=== PATIENT | female | born 1965 | race Caucasian/White ===

== ENCOUNTER 2016-11-18 02:38 | Inpatient (IN) | payer BC ==
[~2016-11-18] VITALS: Ht 170.2 cm; Wt 83.0 kg
[2016-11-18 05:09] LABS: HEMOGLOBIN 11.8 gm/dl (12.3-15.3); RED BLOOD COUNT 3.54 M/UL (4.00-5.10); WHITE BLOOD COUNT 7.5 K/UL (4.5-11.0)
[2016-11-18] MEDS ORDERED: LISINOPRIL5 MG PO (05:16)
[2016-11-18] MEDS ORDERED: CATAPRES TTS P TD (05:16)
[2016-11-18] MEDS ORDERED: HABITROL 21 MG P1 EA TD (05:17)
[2016-11-18] MEDS ORDERED: DILANTIN 100 M100 MG PO (05:17)
[2016-11-18 05:26] LABS: BUN/CREATININE RATIO 35 (0-10)
[2016-11-19 03:52] LABS: HEMOGLOBIN 13.2 gm/dl (12.3-15.3)
[2016-11-19 03:58] LABS: RED BLOOD COUNT 3.92 M/UL (4.00-5.10); WHITE BLOOD COUNT 9.7 K/UL (4.5-11.0)
[2016-11-19 04:10] LABS: BUN/CREATININE RATIO 38 (0-10)
== END 2016-11-19 10:41 | disposition left against medical advice (07) | DRG 208 ==
LOC: CCU 04:12
PROVIDERS: Hospitalist; ADMIT Internal Medicine
PROC: 5A1935Z Respiratory Ventilation, Less than 24 Consecutive Hours (ICD-10-PCS; principal; 2016-11-18)
DX: J96.01 Acute respiratory failure with hypoxia (principal); G93.40 Encephalopathy, unspecified; B18.1 Chronic viral hepatitis B without delta-agent; G40.909 Epilepsy, unspecified, not intractable, without status epilepticus; F19.10 Other psychoactive substance abuse, uncomplicated; F17.210 Nicotine dependence, cigarettes, uncomplicated; Z79.899 Other long term (current) drug therapy; I10 Essential (primary) hypertension
CPT/HCPCS: 36415; 36600; 71010; 76705; 80053; 80074; 80185; 80307; 81001; 82140; 82550; 82553; 82803; 83605; 83735; 84100; 84484; 85027; 87040; 87086; 87390; 93005; 94002; A4628; J0696; J1165; J1335; J1630; J3486; J7050

== ENCOUNTER 2016-11-29 01:19 | Emergency (ER) | payer BC ==
[~2016-11-29 01:19] MED LIST: CATAPRES TTS P TD; DILANTIN 100 M100 MG PO; HABITROL 21 MG P1 EA TD; LISINOPRIL5 MG PO
[2016-11-29 03:01] LABS: BUN/CREATININE RATIO 33 (0-10)
[2016-11-29 03:14] LABS: HEMOGLOBIN 12.7 gm/dl (12.3-15.3); RED BLOOD COUNT 3.74 M/UL (4.00-5.10); WHITE BLOOD COUNT 16.3 K/UL (4.5-11.0)
== END 2016-11-29 08:58 | disposition short-term general hospital (02) ==
LOC: ER1 01:19
PROVIDERS: Physician Assistant
DX: K65.0 Generalized (acute) peritonitis (principal); R06.02 Shortness of breath; R07.89 Other chest pain; I10 Essential (primary) hypertension; B19.10 Unspecified viral hepatitis B without hepatic coma; F17.200 Nicotine dependence, unspecified, uncomplicated
CPT/HCPCS: 71010; 80053; 81001; 82140; 83605; 83690; 84484; 85025; 85610; 85730; 87040; 87086; 93005; 96365; 96367; 96375; 96376; 99285; J0696; J2270; J2405; J2543; J3370; J7030; J7050

== ENCOUNTER 2020-12-07 13:37 | Emergency (ER) | payer BC, OTHER ==
[~2020-12-07 13:37] MED LIST changes: +BENTYL 20MG TAB20 MG PO; +ZOFRAN ODT 4 MG4 MG PO
[2020-12-07] MEDS ORDERED: IBU800 MG PO (17:28)
[2020-12-07] MEDS ORDERED: NORFLEX 100 MG100 MG PO (17:28)
[2020-12-19] MEDS ORDERED: KEPPRA750 MG PO (06:59)
[2020-12-19] MEDS ORDERED: [UNRECOGNIZED DRUG - OTHER] PO (07:01)
[2020-12-19] MEDS ORDERED: SPIRONOLACTONE100 MG PO (07:02)
[2020-12-19] MEDS ORDERED: LASIX20 MG PO (07:03)
[2020-12-19] MEDS ORDERED: SPIRIVA18 MCG INH (07:03)
[2020-12-19] MEDS ORDERED: NEURONTIN600 MG PO (07:05)
[2020-12-19] MEDS ORDERED: HYDROCODON-ACE1 EAC4 PO (08:20)
[2020-12-19] MEDS ORDERED: TORADOL 10 MG T10 MG PO (08:20)
== END 2020-12-07 17:58 | disposition home or self-care (01) ==
LOC: ER1 13:37
DX: S63.287A Dislocation of proximal interphalangeal joint of left little finger, initial encounter (principal); S60.211A Contusion of right wrist, initial encounter; S20.211A Contusion of right front wall of thorax, initial encounter; J44.9 Chronic obstructive pulmonary disease, unspecified; G40.909 Epilepsy, unspecified, not intractable, without status epilepticus; F17.210 Nicotine dependence, cigarettes, uncomplicated; Z79.899 Other long term (current) drug therapy; W20.8XXA Other cause of strike by thrown, projected or falling object, initial encounter; Y92.009 Unspecified place in unspecified non-institutional (private) residence as the place of occurrence of the external cause
CPT/HCPCS: 71046; 71111; 71120; 73110; 73140; 96372; 99283; J1885

== ENCOUNTER → 2020-12-19 | Day surgery (SDC) | payer BC, OTHER ==
[~2020-12-19] VITALS: Ht 170.2 cm; Wt 88.0 kg
[~2020-12-19] MED LIST changes: +HYDROCODON-ACE1 EAC4 PO; +IBU800 MG PO; +KEPPRA750 MG PO; +LASIX20 MG PO; +NEURONTIN600 MG PO; +NORFLEX 100 MG100 MG PO; +SPIRIVA18 MCG INH; +SPIRONOLACTONE100 MG PO; +TORADOL 10 MG T10 MG PO; +[UNRECOGNIZED DRUG - OTHER] PO
[2020-12-19 06:55] LABS: HEMOGLOBIN 16.3 gm/dl (12.3-15.3); RED BLOOD COUNT 4.99 M/UL (4.00-5.10); WHITE BLOOD COUNT 5.9 K/UL (4.5-11.0)
[2020-12-19 07:09] LABS: BUN/CREATININE RATIO 13 (0-10)
== END | disposition home or self-care (01) ==
LOC: OR 05:37
PROVIDERS: Orthopaedic Surgery
DX: S63.287A Dislocation of proximal interphalangeal joint of left little finger, initial encounter (principal); K21.9 Gastro-esophageal reflux disease without esophagitis; F17.210 Nicotine dependence, cigarettes, uncomplicated; Z85.41 Personal history of malignant neoplasm of cervix uteri; X50.9XXA Other and unspecified overexertion or strenuous movements or postures, initial encounter
CPT/HCPCS: 36415; 71045; 73130; 76000; 80048; 85025; 93005; J0690; J1100; J1885; J2250; J2405; J2704; J3010; J7120

== ENCOUNTER 2021-03-10 23:40 | Emergency (ER) | payer BC ==
[~2021-03-10] VITALS: Ht 170.2 cm; Wt 86.2 kg
[2021-03-11 01:57] LABS: HEMOGLOBIN 15.4 gm/dl (12.3-15.3); RED BLOOD COUNT 4.92 M/UL (4.00-5.10); WHITE BLOOD COUNT 8.1 K/UL (4.5-11.0)
[2021-03-11 02:18] LABS: BUN/CREATININE RATIO 19 (0-10)
[2021-03-11] MEDS ORDERED: BUSPIRONE HCL30 MG PO (07:05)
[2021-03-11] MEDS ORDERED: XIFAXAN550 MG PO (07:08)
== END 2021-03-11 09:35 | disposition home or self-care (01) ==
LOC: ER1 23:40 → CDU 03-11 04:40 → ER1 03-11 04:40 → CDU 03-11 04:40
PROVIDERS: Physician Assistant
DX: L72.8 Other follicular cysts of the skin and subcutaneous tissue (principal); L02.31 Cutaneous abscess of buttock; L03.115 Cellulitis of right lower limb; G40.909 Epilepsy, unspecified, not intractable, without status epilepticus; Z86.19 Personal history of other infectious and parasitic diseases; F17.210 Nicotine dependence, cigarettes, uncomplicated; Z90.89 Acquired absence of other organs; K21.9 Gastro-esophageal reflux disease without esophagitis; Z20.822 Contact with and (suspected) exposure to COVID-19
CPT/HCPCS: 80053; 83605; 83735; 84100; 85025; 85610; 85652; 85730; 86140; 87040; 99285; G0378; J0690; J1100; J1170; J2001; J2250; J2405; J2704; J3010; J7120; Q9967; U0002

== ENCOUNTER 2021-08-24 21:05 | Emergency (ER) | payer BC ==
[~2021-08-24 21:05] MED LIST changes: +BUSPIRONE HCL30 MG PO; +XIFAXAN550 MG PO
[2021-08-24 22:06] LABS: HEMOGLOBIN 16.8 gm/dl (12.3-15.3); RED BLOOD COUNT 5.16 M/UL (4.00-5.10); WHITE BLOOD COUNT 7.7 K/UL (4.5-11.0)
[2021-08-24 22:34] LABS: BUN/CREATININE RATIO 14 (0-10)
[2021-08-25] MEDS ORDERED: DIFLUCAN150 MG PO (05:49)
[2021-08-25] MEDS ORDERED: LACTULOSE20 GM/30 M PO (05:49)
== END 2021-08-25 05:50 | disposition home or self-care (01) ==
LOC: ER1 21:05
PROVIDERS: Family Medicine
DX: R55 Syncope and collapse (principal); R41.0 Disorientation, unspecified; E72.20 Disorder of urea cycle metabolism, unspecified; F17.210 Nicotine dependence, cigarettes, uncomplicated
CPT/HCPCS: 51702; 70450; 71045; 80053; 81001; 82140; 82550; 82553; 83874; 84484; 85025; 87086; 93005; 99284; J2405